=== PATIENT | male | born 1985 | race Caucasian/White ===

== ENCOUNTER 2022-07-29 16:00 | Inpatient (IN) | payer OTHER, MEDICAID ==
[~2022-07-29] VITALS: Ht 167.6 cm; Wt 67.8 kg
[2022-07-29 17:21] LABS: BASOPHILS % 0.5 % (0.0-2.0); EOSINOPHILS % 0.8 % (0.0-5.0); HEMATOCRIT. 38.3 % (42.0-52.0); HEMOGLOBIN. 13.2 g/dL (14.0-18.0); MEAN CORPUSCULAR VOLUME 90.2 fL (80.0-94.0); MEAN PLATELET VOLUME 8.7 fl (7.4-10.4); MONOCYTES % 10.5 % (2.0-8.0); NEUTROPHILS % 71.2 % (40.0-76.0); PLATELET 487 x1000/uL (130-400); RED BLOOD CELL COUNT 4.25 mill/uL (4.7-6.1)
[2022-07-29 17:27] LABS: CHLORIDE 92 mEq/L (98-107)
[2022-07-29 17:30] LABS: INR 1.1; PROTHROMBIN TIME 11.8 sec (9.6-11.0)
[2022-07-29] MEDS ORDERED: SODIUM CHLORIDE 0.9% 1,000 ML IV ONE (17:45)
[2022-07-29] MEDS: VANCOMYCIN 1G PREMIX 200 ML IV SCH ×2 (18:00→19:20)
[2022-07-29] MEDS ORDERED: IOHEXOL-300 100 ML BOTTLE ONE (20:04)
[2022-07-30] VITALS: BP 133/73
[2022-07-30 03:51] VITALS: BP 133/73
[2022-07-30 04:00] VITALS: BP 120/65
[2022-07-30 08:00] VITALS: BP_SYST 123; BP_SYST 124; BP_DIAS 66; BP_DIAS 89
[2022-07-30] MEDS ORDERED: POTASSIUM CHLORIDE 20MEQ TABLET SR PO NR (10:00)
[2022-07-30] MEDS ORDERED: DOCUSATE SODIUM 100MG CAPSULE PO PRN (10:00)
[2022-07-30] MEDS ORDERED: VANCOMYCIN 1G PREMIX 200 ML IV SCH (10:00)
[2022-07-30] MEDS ORDERED: CEFTRIAXONE 1 G PREMIX 50 ML IV SCH (10:00)
[2022-07-30] MEDS ORDERED: HYDROCODONE/ACETAMINOPHEN 5/325MG TABLET PO PRN (10:00)
[2022-07-30] MEDS ORDERED: ONDANSETRON HCL 4MG/2ML INJ IV PRN (10:00)
[2022-07-30] MEDS ORDERED: ACETAMINOPHEN 325MG TABLET PO PRN (10:00)
[2022-07-30] MEDS ORDERED: IPRATROPIUM/ALBUTEROL 0.5-3(2.5)MG/3ML NEB HHN PRN (10:00)
[2022-07-30] MEDS ORDERED: NALOXONE HCL 0.4MG/ML VIAL IV PRN (10:30)
[2022-07-30 10:52] LABS: HEMATOCRIT. 33.2 % (42.0-52.0); HEMOGLOBIN. 11.1 g/dL (14.0-18.0); MEAN CORPUSCULAR HEMOGLOBIN 30.6 pg (28.0-32.0); MEAN CORPUSCULAR VOLUME 91.4 fL (80.0-94.0); MEAN PLATELET VOLUME 8.1 fl (7.4-10.4); PLATELET 424 x1000/uL (130-400); RED BLOOD CELL COUNT 3.64 mill/uL (4.7-6.1); RED CELL DISTRIBUTION WIDTH 14.2 % (11.6-14.6)
[2022-07-30 10:59] LABS: CHLORIDE 99 mEq/L (98-107)
[2022-07-30] MEDS: ENOXAPARIN 40MG/0.4ML SYR SUBCUT SCH (11:19)
[2022-07-30 12:00] VITALS: BP 124/89
[2022-07-30 13:25] LABS: PLATELET ESTIMATE SLIGHTLY INCREASED
[2022-07-30] MEDS: SODIUM CHLORIDE 0.9% 1,000 ML IV SCH ×2 (13:42→23:40)
[2022-07-30] MEDS: VANCOMYCIN 1GM PMX (XELLIA) 200 ML IV SCH ×2 (13:42→23:39)
[2022-07-30] MEDS ORDERED: DOCU-150 PO (14:12)
[2022-07-30] MEDS ORDERED: HALO10TA13 PO (14:12)
[2022-07-30] MEDS ORDERED: DIPH-907 MT (14:12)
[2022-07-30] MEDS: CEFTRIAXONE 1,000 MG in DEXTROSE 5% WATER 50 ML IV SCH (16:08)
[2022-07-30 20:00] VITALS: BP 129/84
[2022-07-31] VITALS: BP 124/70
[2022-07-31 04:00] VITALS: BP 122/80
[2022-07-31 08:00] VITALS: BP 125/90
[2022-07-31 09:43] LABS: HEMATOCRIT. 33.4 % (42.0-52.0); HEMOGLOBIN. 11.2 g/dL (14.0-18.0); MEAN CORPUSCULAR HEMOGLOBIN 30.4 pg (28.0-32.0); MEAN CORPUSCULAR VOLUME 91.1 fL (80.0-94.0); MEAN PLATELET VOLUME 7.7 fl (7.4-10.4); PLATELET 486 x1000/uL (130-400); RED BLOOD CELL COUNT 3.67 mill/uL (4.7-6.1); RED CELL DISTRIBUTION WIDTH 14.1 % (11.6-14.6)
[2022-07-31 09:48] LABS: CHLORIDE 102 mEq/L (98-107)
[2022-07-31] MEDS: SODIUM CHLORIDE 0.9% 1,000 ML IV SCH (11:30)
[2022-07-31] MEDS: ENOXAPARIN 40MG/0.4ML SYR SUBCUT SCH (11:30)
[2022-07-31] MEDS: VANCOMYCIN 1GM PMX (XELLIA) 200 ML IV SCH ×2 (11:30→22:04)
[2022-07-31 14:03] LABS: PLATELET ESTIMATE SLIGHTLY INCREASED
[2022-07-31] MEDS: CEFTRIAXONE 1,000 MG in DEXTROSE 5% WATER 50 ML IV SCH (15:17)
[2022-07-31 16:00] VITALS: BP 140/87
[2022-07-31 20:00] VITALS: BP 129/80
[2022-08-01] VITALS: BP 141/63
[2022-08-01] MEDS: SODIUM CHLORIDE 0.9% 1,000 ML IV SCH ×2 (01:08→22:01)
[2022-08-01 04:00] VITALS: BP 131/82
[2022-08-01] MEDS: VANCOMYCIN 1GM PMX (XELLIA) 200 ML IV SCH ×3 (05:37→21:55)
[2022-08-01 07:26] LABS: BASOPHILS % 0.6 % (0.0-2.0); EOSINOPHILS % 1.8 % (0.0-5.0); HEMATOCRIT. 33.9 % (42.0-52.0); HEMOGLOBIN. 11.3 g/dL (14.0-18.0); LYMPHOCYTES % 20.4 % (20.0-50.0); MEAN CORPUSCULAR HEMOGLOBIN 30.5 pg (28.0-32.0); MEAN CORPUSCULAR VOLUME 91.7 fL (80.0-94.0); MEAN PLATELET VOLUME 7.7 fl (7.4-10.4); MONOCYTES % 7.5 % (2.0-8.0); NEUTROPHILS % 69.7 % (40.0-76.0); PLATELET 529 x1000/uL (130-400); RED BLOOD CELL COUNT 3.69 mill/uL (4.7-6.1); RED CELL DISTRIBUTION WIDTH 14.1 % (11.6-14.6)
[2022-08-01 07:40] LABS: CHLORIDE 104 mEq/L (98-107)
[2022-08-01 08:00] VITALS: BP 125/87
[2022-08-01 12:00] VITALS: BP 116/84
[2022-08-01] MEDS: CEFTRIAXONE 1,000 MG in DEXTROSE 5% WATER 50 ML IV SCH (13:59)
[2022-08-01] MEDS: ENOXAPARIN 40MG/0.4ML SYR SUBCUT SCH (14:04)
[2022-08-01 16:00] VITALS: BP 120/77
[2022-08-01 19:44] VITALS: BP 117/79
[2022-08-02] MEDS: SODIUM CHLORIDE 0.9% 1,000 ML IV SCH (05:56)
[2022-08-02] MEDS: VANCOMYCIN 1GM PMX (XELLIA) 200 ML IV SCH (05:56)
[2022-08-02 06:35] VITALS: BP 128/72
[2022-08-02 08:00] VITALS: BP 123/85
[2022-08-02] MEDS: ENOXAPARIN 40MG/0.4ML SYR SUBCUT SCH (10:47)
[2022-08-02 12:00] VITALS: BP 108/75
[2022-08-02] MEDS ORDERED: ARIP20TA2 MT (12:05)
[2022-08-02] MEDS ORDERED: AMOX1TAB16 MT (12:11)
[2022-08-02] MEDS ORDERED: DOXY-326 MT (12:11)
[2022-08-02 14:09] VITALS: BP 108/75
== END 2022-08-02 15:15 | disposition home or self-care (01) | DRG 871 ==
LOC: ER 16:00 → MICUSO 20:11 → 6EST 07-30 02:05
PROVIDERS: ADMIT Internal Medicine; ATTEND Internal Medicine
DX: A41.9 Sepsis, unspecified organism (principal); E43 Unspecified severe protein-calorie malnutrition; L03.115 Cellulitis of right lower limb; E87.1 Hypo-osmolality and hyponatremia; E87.6 Hypokalemia; F20.9 Schizophrenia, unspecified; F17.210 Nicotine dependence, cigarettes, uncomplicated; E88.09 Other disorders of plasma-protein metabolism, not elsewhere classified; Z79.899 Other long term (current) drug therapy
CPT/HCPCS: 36415; 73700; 80048; 80053; 80202; 83605; 84145; 85025; 85651; 86850; 86900; 99285; J0696; J1650; J3370; J7030; J7060; Q9967

== ENCOUNTER 2023-04-18 11:43 | Emergency (ER) | payer MEDICARE, MEDICAID ==
[~2023-04-18] VITALS: Ht 167.6 cm; Wt 73.0 kg
[~2023-04-18 11:43] MED LIST: AMOX1TAB16 MT; ARIP20TA2 MT; DIPH-907 MT; DOCU-150 PO; DOXY-456 MT; HALO10TA13 PO
[2023-04-18 11:52] VITALS: BP 130/79; PULSE 103; RESP 16; TEMP 97.5
== END 2023-04-18 15:05 | disposition left against medical advice (07) ==
LOC: ER 11:43
DX: R10.9 Unspecified abdominal pain (principal); Z53.21 Procedure and treatment not carried out due to patient leaving prior to being seen by health care provider

== ENCOUNTER 2025-02-26 21:53 | Emergency (ER) | payer MEDICARE, MEDICAID ==
[~2025-02-26] VITALS: Ht 180.3 cm; Wt 82.0 kg
[~2025-02-26 21:53] MED LIST changes: -DOCU-150 PO; +DOCU-422 PO; -DOXY-456 MT; +DOXY-461 MT
[2025-02-26 22:03] VITALS: BP 122/89; PULSE 110; RESP 18; TEMP 37.2; O2SAT 99
== END 2025-02-26 23:45 | disposition left against medical advice (07) ==
LOC: ER 21:53
DX: L02.412 Cutaneous abscess of left axilla (principal); Z53.21 Procedure and treatment not carried out due to patient leaving prior to being seen by health care provider